=== PATIENT | female | born 1995 | race Caucasian/White ===

== ENCOUNTER → 2020-08-06 00:30 | Outpatient (CLI) | payer OTHER, SELFPAY ==
[2020-08-06 18:42] LABS: SARS-CoV-2 RNA PCR Negative
== END ==
PROVIDERS: Visit Provider Obstetrics & Gynecology
DX: Z01.812 Encounter for preprocedural laboratory examination (principal); Z20.822 Contact with and (suspected) exposure to COVID-19
CPT/HCPCS: C9803; U0003; U0005

== ENCOUNTER 2020-08-09 01:53 | Day surgery (SDC) | payer OTHER, SELFPAY ==
[2020-08-02 15:06] VITALS: BMI 44.6
--- NOTE | 2020-08-06 13:49 | PM.IMHP ---
H&P: HPI History of Present Illness Date/Time: 08/06/20 13:49 25 y/o who had been bleeding daily since 04/22/2020 and had endometrial biopsy in the office showing hyperplasia in endometrial polyps. She started progestin therapy and did quit bleeding just a week or so ago. No pelvic pain Chief Complaint: endometrial hyperplasia Review of Systems Review of Systems: All systems reviewed & are unremarkable except as noted in HPI and below PMFSH Past Medical History Medical History Migraine PCOS (polycystic ovarian syndrome) Family History Family History Father Hypertension Sibling Asthma Depression Grandparent Diabetes mellitus Lung cancer Social History Social History Smoking status: Light tobacco smoker Tobacco type: e-cigarettes/vaping Alcohol intake: current Substance use: never Substance use type: does not use Spiritual care concerns: No Meds Home Medications and Allergies Home Medications Medication Instructions Recorded Confirmed Type cholecalciferol (vitamin D3) 125 125 mcg PO DAILY 07/20/20 08/02/20 History mcg (5,000 unit) capsule norethindrone acetate [Aygestin] 10 mg PO HS 08/02/20 08/02/20 History Allergies Allergy/AdvReac Type Severity Reaction Status Date / Time amoxicillin AdvReac Mild Other Verified 08/03/20 12:31 Exam Const: General: no acute distress, alert and awake Resp: Auscultation: clear to auscultation bilaterally Cardio: Rate: regular rate Rhythm: regular rhythm GI: Inspection: non-distended GI Palp: Yes Soft to palpation and No Tenderness to palpation present (GI) : External Female Exam: normal external appearance Bimanual exam- vagina & uterus: normal bimanual exam, uterine size normal, uterine mobility normal, uterine shape normal, non-tender and soft Bimanual Exam- Adnexa, other: normal adnexae, no masses and No adnexal tenderness Extrem: General: no pedal edema and no calf tenderness Psych: Mental Status: mental status grossly normal Assessment and Plan Assessment and plan (1) Endometrial hyperplasia without atypia, simple: Code(s): N85.01 - Benign endometrial hyperplasia Status: Acute Assessment and Plan: She signed consent after risks, benefits, complications, and alternatives discussed for D&C, hysteroscopy, and endometrial polypectomy. She expressed understanding and wishes to proceed. (2) Endometrial polyp: Code(s): N84.0 - Polyp of corpus uteri Status: Acute (3) Menometrorrhagia: Code(s): N92.1 - Excessive and frequent menstruation with irregular cycle Status: Acute
[2020-08-09] MEDS: LACTATED RINGERS 1,000 ML 30 ML IV CONT ×2 (10:35→13:08)
[2020-08-09] MEDS: ACETAMINOPHEN 500 MG TABLET 1000 MG PO (10:35)
[2020-08-09 10:59] VITALS: BP 149/94; PULSE 76; RESP 18; TEMP 36.4; O2SAT 100
--- NOTE | 2020-08-09 11:27 | WPDANESEPPF ---
Anes - Initial Pre Proc Eval Procedure: Operation Date: 08/09/20 12:00 Proposed Procedures p Hysteroscopy, Dilation and Curettage, Possible Myosure - Adele Craig MD Date/Time: 08/09/20 11:27 Surgeon: Adele Craig MD Pre Op Diagnosis: endometrial polyps, hyperplasia, menometrorrhagia Patient Data Age: 25 Gender: F Height: 1.7 m Weight: 128 kg Last Vital Signs Temp 36.4 C L 08/09/20 10:59 Pulse 76 08/09/20 10:59 Resp 18 08/09/20 10:59 BP 149/94 H 08/09/20 10:59 Pulse Ox 100 08/09/20 10:59 Allergies Allergy/AdvReac Type Severity Reaction Status Date / Time amoxicillin AdvReac Mild Other Verified 08/09/20 10:57 Home Medications Medication Instructions Recorded Confirmed Type cholecalciferol (vitamin D3) 125 125 mcg PO DAILY 07/20/20 08/09/20 History mcg (5,000 unit) capsule norethindrone acetate [Aygestin] 10 mg PO HS 08/02/20 08/09/20 History Patient hx anesthesia problems: none Family hx anesthesia problems: none PMFSH Past Medical History Medical History Migraine PCOS (polycystic ovarian syndrome) Family History Family History Father Hypertension Sibling Asthma Depression Grandparent Diabetes mellitus Lung cancer Social History Social History Smoking status: Light tobacco smoker Tobacco type: e-cigarettes/vaping Alcohol intake: current Alcohol use details: 3/MONTH Substance use: never Substance use type: does not use Living arrangements: with family Spiritual care concerns: No Anes - Eval Final PreProcedure Day of Procedure 08/09/20 11:27 Patient weight: morbidly obese Heart: regular rate and rhythm Lungs: clear to auscultation and normal air movement Airway: Mallampati scale class II Neurological: alert and oriented Last oral intake: >/= 8 hours ASA classification: III Emergent: no Anesthetic plan: proceed Anesthesia type and monitoring: general GIVS and standard monitoring Informed Consent: The patient's anesthetic plan and its attendant risks and benefits were discussed with the patient/family/POA. Questions were solicited and answers provided to the satisfaction of the patient/family/POA.
--- NOTE | 2020-08-09 11:38 | WPDHPUPDATE1 ---
History and Physical Update Update Date/Time: 08/09/20 11:38 History and Physical has been reviewed, including an updated exam of the patient. There are NO changes in the patient's condition. Risks, benefits, and alternatives have been discussed and questions answered. Patient agrees to proceed with procedure.
--- NOTE | 2020-08-09 11:59 | PM.PROC ---
Procedure Note - Detailed Date of procedure: 08/09/20 Pre-op diagnosis: endometrial polyps, hyperplasia, menometrorrhagia Post-op diagnosis: same Procedure performed: D&C, hysteroscopy, endometrial polypectomy using MyoSure Description of procedure: She was taken to the operating room where she was sedated and placed in the dorsal lithotomy position. A speculum was placed in the vagina. The anterior lip of the cervix was grasped with a single-tooth tenaculum. The uterus sounded to 8 cm. The cervix was dilated to allow passage of the hysteroscope, which revealed multiple small polypoid lesions inside the endometrial cavity. Decision was made to switch to the MyoSure hysteroscope and device. The MyoSure scope was then introduced. Under direct hysteroscopic visualization, the MyoSure device was used to remove the polypoid lesions. Once the endometrial cavity looked completely clear of the polyps, a sharp curettage was performed. The shavings and curettings were sent together for pathologic evaluation. The tenaculum was removed from the cervix. The tenaculum sites were noted to be hemostatic. All instruments were removed from the vagina. She tolerated the procedure well. Sponge, lap, and instrument counts were correct x2. She was taken to the recovery room in stable condition. Anesthesia: MAC Surgeon: Adele Craig MD Estimated blood loss (mL): 10 Drains: No Packing: No Pathology: yes Complications: No immediate complications Condition: stable Disposition: PACU Findings: Multiple small polypoid lesions inside endometrial canal, otherwise normal endometrial cavity once polyps removed
--- NOTE | 2020-08-09 12:45 | SUR.OPER ---
hysteroscopy irrigation 2700ml IVNS in and 2300ml IVNS out
[2020-08-09 12:53] VITALS: BP 140/90; PULSE 86; RESP 16; O2SAT 97
[2020-08-09] MEDS: fentaNYL CITRATE INJ (*CRX) 100 MCG/2 ML VIAL 25 MCG IV PUSH ×2 (13:03→13:06)
[2020-08-09 13:10] VITALS: BP 126/65; PULSE 79; RESP 16; O2SAT 99
[2020-08-09] MEDS: oxyCODONE HCL (*CRX) 5 MG TAB IR PO (13:24)
[2020-08-09 13:40] VITALS: BP 118/89; PULSE 72; RESP 16; O2SAT 100
== END 2020-08-09 13:57 | disposition home or self-care (01) ==
PROVIDERS: PCP Family Medicine; Visit Provider Obstetrics & Gynecology
PROC: 0U5B8ZZ Destruction of Endometrium, Via Natural or Artificial Opening Endoscopic (ICD-10-PCS; CPT 58563; principal; 2020-08-09 12:00)
DX: N92.1 Excessive and frequent menstruation with irregular cycle (principal); N84.0 Polyp of corpus uteri; E28.2 Polycystic ovarian syndrome; F17.290 Nicotine dependence, other tobacco product, uncomplicated; E66.01 Morbid (severe) obesity due to excess calories; Z68.41 Body mass index [BMI] 40.0-44.9, adult
CPT/HCPCS: 58558; 88305; A9270; C9803; J2250; J3010; J7030; J7120; U0003; U0005

== ENCOUNTER 2020-09-06 11:21 | Outpatient (CLI) | payer OTHER, SELFPAY ==
[2020-09-06 11:36] LABS: Hematocrit 27.8 % (37.0-47.0); Mean Corpuscular HGB Conc 32.4 g/dl (32-36); Mean Corpuscular Hemoglobin 27.2 pg (26-34); Mean Platelet Volume 9.2 fl (7.4-10.4); Platelet Count Result 297 k/mm3 (150-375); Red Blood Count 3.31 M/mm3 (4.2-5.4); Red Cell Distribution Width 13.5 % (11.5-14.5); White Blood Count 7.1 K/mm3 (4.5-10.0)
== END 2020-09-06 11:22 | disposition home or self-care (01) ==
PROVIDERS: PCP Family Medicine; Visit Provider Obstetrics & Gynecology
DX: N92.1 Excessive and frequent menstruation with irregular cycle (principal)
CPT/HCPCS: 36415; 85027

== ENCOUNTER 2020-12-29 10:53 | Outpatient (CLI) | payer BC, SELFPAY ==
[2020-12-29 18:22] LABS: Hematocrit 37.1 % (37.0-47.0); Hemoglobin 11.4 g/dL (12.0-15.0); Mean Corpuscular HGB Conc 30.7 g/dl (32-36); Mean Corpuscular Hemoglobin 23.6 pg (26-34); Mean Corpuscular Volume 76.8 fl (80-100); Mean Platelet Volume 10.2 fl (7.4-10.4); Platelet Count Result 282 k/mm3 (150-375); Red Blood Count 4.83 M/mm3 (4.2-5.4); Red Cell Distribution Width 17.4 % (11.5-14.5); White Blood Count 8.1 K/mm3 (4.5-10.0)
== END 2020-12-29 10:54 | disposition home or self-care (01) ==
PROVIDERS: PCP Family Medicine; Visit Provider Obstetrics & Gynecology
DX: N92.1 Excessive and frequent menstruation with irregular cycle (principal)
CPT/HCPCS: 36415; 85027